=== PATIENT | female | born 1990 | race Caucasian/White ===

== ENCOUNTER 2024-12-22 03:34 | Day surgery (SDC) | payer OTHER, SELFPAY ==
[2024-12-21 20:22] VITALS: BP 97/70
[2024-12-21 20:46] LABS: % Basophils 0.1 % (0-2); % Eosinophils 0.1 % (0-6); % Immature Granulocytes 0.1 % (0-0.5); % Lymphocytes 15.3 % (20.5-51.1); % Monocytes 5.2 % (1.7-9.3); % Neutrophils 79.2 % (42.2-75.2); Absolute Lymphocytes 1.2 10^3/uL (1.2-3.4); Absolute Monocytes 0.4 10^3/uL (0.1-0.6); Hematocrit 34.9 % (37.0-47.0); Hemoglobin 11.8 g/dL (12.0-16.0); Mean Corp Hgb Conc. 33.8 g/dL (33.0-37.0); Mean Corpuscular Hgb 25.4 pg (27.0-31.0); Mean Corpuscular Volume 75.2 fL (81.0-99.0); Mean Platelet Volume 9.6 fL (7.4-10.4); Nucleated Red Blood Cells % 0 %; Platelet Count 116 10^3/uL (130-400); Red Blood Cell Count 4.64 10^6/uL (4.20-5.40); Red Cell Dist. Width 13.3 % (11.5-14.5); White Blood Cell Count 7.6 10^3/uL (4.8-10.8)
[2024-12-21 21:02] LABS: ALT (SGPT) 14 U/L (0-35); AST (SGOT) 23 U/L (14-36); Albumin 4.2 g/dl (3.5-5.0); Alkaline Phosphatase 45 U/L (38-126); Blood Urea Nitrogen 11 mg/dl (7-17); Calcium 9.5 mg/dl (8.4-10.2); Carbon Dioxide 26 mmol/L (22-30); Chloride 102 mmol/L (98-107); Glucose 92 mg/dl (70-99); Lipase 66 U/L (23-300); Potassium 3.5 mmol/L (3.5-5.1); Sodium 136 mmol/L (135-145); Total Bilirubin 0.7 mg/dl (0.2-1.3); eGFR > 60.00
[2024-12-21 22:33] LABS: HCG, Serum Qualitative Screen Negative
--- NOTE | 2024-12-21 23:22 | ED.GENMED ---
History of Present Illness
General
Chief Complaint: Abdominal Symptoms
Source: patient and spouse ( at bedside, interpreting for the patient)
Exam Limitations: none and other (Patient speaks Pashto, is interpreting)
Time Seen by Provider: 12/21/24 23:09
Nursing documentation reviewed up to this point in time: agreed with
History of Present Illness
History of Present Illness:
This is a 34-year-old woman with no significant past medical history who presents with her with complaints of generalized lower abdominal pain that began mildly around 5 AM, worsened at 9 AM accompanied with nausea and 3 episodes of
vomiting. Last episode of vomiting was 1 PM. Lower abdominal pain comes and goes throughout the day, temporized with ibuprofen as well as temporized with topical hot water bottle. Her last dose of ibuprofen was 1:30 PM.
She does admit to mild dysuria and perhaps mild mucus in her urine but has not noticed hematuria, no vaginal discharge, she has had some flank pain, intermittent more so on the right than the left throughout the day today. She denies fever nor
chills. No coughing or shortness of breath, no chest pain, no diarrhea.
She believes she had 1 similar episode when she was 15 years old. Unsure as to cause of those symptoms. She has no known prior history of ovarian cysts. No prior history of kidney stones nor UTI/pyelonephritis. No previous abdominal surgeries.
Last menstrual period December 08, normal and on time. Menses are generally monthly, regular.
She takes no medicines on a daily basis.
Patient does not speak Slovenian. Her is interpreting for her.
Past History
Past History
ED Past Medical History: None
ED Past Surgical History: Gynecological (Benign breast biopsy)
Social History
Tobacco: Non-smoker
Alcohol: None
Drug: None
Personal:
Living: with family
Family History
Family History: Other (Noncontributory)
Phy Exam
Physical Exam
Physical Exam:
GENERAL: 34-year-old woman appears her stated age, small frame/thin build, bright and alert, pleasant, quiet demeanor, appears in no acute distress. is accompanying and is interpreting for her.
EYE: anicteric
NECK: Supple, nontender, no meningismus, no significant adenopathy.
ENT: oral mucosa is moist. No rhinorrhea.
CARDIAC: Regular rate and rhythm. no murmur.
LUNGS: Clear breath sounds bilaterally, no acute respiratory distress, no wheezes/rales/rhonchi
ABDOMEN: Soft, nondistended, moderate generalized tenderness lower abdomen, more so on the right than left, with minimal tenderness right upper lateral quadrant, mild right CVA tenderness with percussion. No r/g, normoactive BS.
NEUROLOGICAL: Alert and oriented x3, no focal neuro deficits. Gait is stewart and steady.
SKIN: Warm and dry, normal color, skin intact. No rash.
MUSCULOSKELETAL: No C/C/E. peripheral pulses are full and equal b/l. No palpable tenderness.
PSYCH: Normal and appropriate interaction.
Course
Orders/Labs/Results
Orders:
Orders
12/21/24 20:27
Test Result ONCE
12/21/24 20:39
Complete Blood Count/With Diff Urgent
Comprehensive Metabolic Panel Urgent
HCG, Serum Qualitative Screen Urgent
Lipase Urgent
12/21/24 23:22
Urinalysis Reflex To Culture Urgent
Date Specimen was Collected: 12/22/24
Time Specimen was Collected: 00:13
12/22/24 00:00
CT Abd/pel Without Iv Or Oral Urgent
Reason For Exam: acute lower abd pain, R flank pain, N/V
Abnormal Lab Results
12/21/24
20:39
Hgb 11.8 L g/dL
(12.0-16.0)
Hct 34.9 L %
(37.0-47.0)
MCV 75.2 L fL
(81.0-99.0)
MCH 25.4 L pg
(27.0-31.0)
Plt Count 116 L 10^3/uL
(130-400)
Neutrophils % 79.2 H %
(42.2-75.2)
Lymphocytes % 15.3 L %
(20.5-51.1)
12/21/24 20:39
12/21/24 20:39
Vital Signs
Initial and Last Documented VS:
Initial Vital Signs
Temp Pulse Resp BP Pulse Ox
98.5 F 77 18 97/70 100
12/21/24 20:22 12/21/24 20:22 12/21/24 20:22 12/21/24 20:22 12/21/24 20:22
Last Documented Vital Signs
Temp Pulse Resp BP Pulse Ox
98.5 F 77 18 97/70 100
12/21/24 20:22 12/21/24 20:22 12/21/24 20:22 12/21/24 20:22 12/21/24 20:22
MDM/Problems Addressed
Differential Diagnosis Includes:
Concern for UTI, pyelonephritis, ureteric stone, ovarian cyst, appendicitis, gastroenteritis.
Thus far labs are reassuring and within normal limits. hCG is negative.
Check urinalysis.
Will check CT abdomen pelvis. Consider pelvic ultrasound.
Patient is currently comfortable, denies nausea and has been drinking fluids throughout the afternoon and evening. Clinically appears euvolemic. No indication for IV fluids. Vital signs within normal limits.
*Radiology
Radiology exam reviewed: radiology read reviewed (CAT scan concerning for early acute appendicitis)
*Pulse Oximetry
Patient hypoxic: no
*Critical Care Note
Total Time (30-74mins, 75-104mins- exclusive of procedures): Not Applicable
Update Note
Update Note:
01:[address] concerning for early acute appendicitis. No obstructive uropathy or perinephric stranding.
Urinalysis is negative.
Case discussed with general surgery. Will admit to their service. Recommend initiation of ceftriaxone and Flagyl. NPO.
ED Attending Note
-
Portions of this chart may have been created with voice recognition software.� Occasional wrong word or��sound alike� substitutions may have occurred due to the inherent limitations of voice recognition software.
Discharge Plan
Departure
Patient Disposition: Admit
Date of Disposition: 12/22/24
Time of Disposition: 01:20
Admit to doctor: Sd
Presentation/result/management discussed w/ accepting MD/DO: gen surgery
Discharge Problem:
Acute appendicitis
Referrals:
Bakari Ferrara MD [Family Provider] -
Interventions
Interventions:
MO-Zbkkyu-Ygfrdhkndl Assessment Last Done: 12/22/24 00:12
Discharge Date and Time
Print Language: SRI LANKAN
[2024-12-22] VITALS (13 sets, daily range): BP systolic 97–128; BP diastolic 52–73; BMI 17.3; BMI 16.0
[2024-12-22 00:39] LABS: Urine Albumin Negative (Neg - Trace); Urine Bilirubin Negative (Negative); Urine Character Clear (Clear); Urine Color Yellow; Urine Glucose Negative (Negative); Urine Ketone Negative (Negative); Urine Leukocyte Negative (Negative); Urine Nitrite Negative (Negative); Urine Occult Blood Negative (Negative); Urine Urobilinogen Negative (Neg - 1+)
[2024-12-22] MEDS: ROCEPHIN 1000 MG IV (01:55)
[2024-12-22] MEDS: FLAGYL 500 MG 100 IV (02:07)
[2024-12-22] MEDS: FLUSH (NSS) 1 FLUSH IV (03:13)
[2024-12-22] MEDS: NSS 1000 IV ×3 (03:14→08:35)
--- NOTE | 2024-12-22 03:31 | HPS.HSE ---
Addendum entered and electronically signed by Octaviano Beaver MD 12/22/24 13:40:
34-year-old female with no PMH who presents with 1 day of worsening abdominal pain associated with nausea and vomiting; WBC 7.6, CT without contrast showing suspicion for possible early appendicitis (on personal review, appendix seems somewhat
dilated, not a significant amount of appear appendiceal stranding, but very hard to delineate without any contrast)
AFVSS, ABD soft, nondistended, minimally tender in the RLQ, mild tenderness with deep palpation, no rebound or guarding
� RLQ abdominal pain, suspicion for acute appendicitis
�Due to the lack of contrast, acute appendicitis is difficult to confirm on CT; she does have some mild tenderness in the RLQ, but less than I would expect and she has no leukocytosis; therefore, acute appendicitis is possible but uncertain; I
explained the treatment options, including repeat CT with IV and p.o. contrast, nonoperative measures with IV antibiotics (explained the risks, including but not limited to, risk of recurrence) or surgery for diagnostic laparoscopy and appendectomy;
risks with surgery include, but not limited to, removal of normal appendix and lack of improvement of symptoms; after lengthy discussion with patient and patient spouse, agreed to repeat CT scan to improve diagnostic confidence
�Continue n.p.o. with IVF
� Continue IV antibiotics with ceftriaxone and Flagyl
� Okay for DVT PPx
� Pain control with Tylenol and Dilaudid as needed
Original Note:
Family Physician
-
Family Physician: Bakari Ferrara MD
Chief Complaint
-
Abdominal pain
History of Present Illness
34 year-old female with no PMH, no previous surgeries and not receiving any prescribed meds at home. Present in ER with a complain of abdominal pain. Symptoms started yesterday around 5 am with generalized abdominal pain, get worse gradually during
morning time. Symptoms associated with nausea and vomiting x3. Pain rated 10/10 of scale pain that increases with movement. Also complained of mild dysuria, some mucus in the urine and had some intermittent flank pain RT side more than LT. Pain
decreased with hot water bottle and ibuprofen. Patient had similar episode when she was 15 years old and she was told that related to infection/ bacteria. Denies diarrhea, constipation, hematuria, chills, fever, SOB, chest pain or any other
symptoms.
LMP December 08, regular monthly.
Patient is czech speaker, does not speak Anguillan, and is helping with interpretation.
Medical History
Past Medical History
Past Medical History: Reports None
Past Surgical History: Reports None
Social History
Tobacco: Non-smoker
Alcohol: None
Drug: None
Personal:
Living: With Family
Employment: Other
Family History
Family History: Not pertinent
Allergies / Home Medications
Allergies reflects when Allergies were last updated in [facility].
Home Medications with original date entered in [facility]
Allergy/Medication List:
Patient Allergies
Allergy/AdvReac Type Severity Reaction Status Date / Time
No Known Allergies Allergy Unverified 12/21/24 20:22
Home Medications Table - record
�Medication �Instructions �Recorded �Confirmed
No Meds [No Current Medications] 12/22/24 12/22/24
Review of Systems
-
A 12 point ROS was completed and negative except as noted: Yes
Constitutional: Reports No Symptoms
EENT: Reports No Symptoms
Respiratory: Reports No Symptoms
Cardiac: Reports No Symptoms
Abdomen/GI: Reports Abdominal Pain, Nausea and Vomiting
: Reports Dysuria (mild) and Flank Pain (intermittent RT more LT)
Musculoskeletal: Reports No Symptoms
Skin: Reports No Symptoms
Psych: Reports Calm
Physical Exam
Vital Signs
Vital Signs
Temp Pulse Resp BP Pulse Ox
98.3 F 68 18 99/64 98
12/22/24 02:35 12/22/24 02:11 12/22/24 02:11 12/22/24 03:12 12/22/24 03:15
Physical Exam
General: No Apparent Distress
Respiratory: Clear
Cardiac: Regular Rhythm
GI: Soft, Non Distended, Normal Bowel Sounds and Tender (Mild RLQ/ RUQ + McBurney`s point )
Musculoskeletal: No Edema
Neuro: Awake and AO x 3
Psych: Calm
Laboratory Results
-
12/21/24 20:39
12/21/24 20:39
Laboratory Results
Total Bilirubin 0.7 mg/dl (0.2-1.3) 12/21/24 20:39
AST 23 U/L (14-36) 12/21/24 20:39
ALT 14 U/L (0-35) 12/21/24 20:39
Alkaline Phosphatase 45 U/L (38-126) 12/21/24 20:39
Lipase 66 U/L (23-300) 12/21/24 20:39
Data Reviewed
-
CT Scan: Discussed with Patient
Impression/Plan
-
-Neg urinalysis
-Normal leukocyte count
-CT abdomen and PLVs shows
Thickened right lower quadrant Appendix measuring up to 9mm, with faint periappendiceal fat stranding. Associated wall thickening of the cecum at the base of the appendix. Findings concerning for early acute appendicitis. No abscess or free air.
Trace free fluids in the pelvis. Mild stool - filed colon.
No obstructive uropathy or perinephric stranding. No renal or ureteral stones. Decompressed bladder.
Mildly enlarged liver. Prominent spleen measuring 12.6 cm craniocaudal.
IMPRESSION:
Acute appendicitis
PLAN:
Admit /observation/ med-surg (Dr. Beaver/ general surgery)
-NPO
-IVF
-Received ceftriaxone and Flagyl in ER
-antiemetics as needed
-analgesics as needed.
DVT prophylaxis Lovenox
Code status Full code
--- NOTE | 2024-12-22 04:30 | PTCARENOTE ---
Patient arrived to [address] [place] [address] via stretcher, walked into room on her own. AAOx[employer], primary Portuguese speaking, and osteopathic medicine teacher phone for communication with patient. IVF infusing per order, all questions answered at this time. Assessment on going.
--- NOTE | 2024-12-22 10:21 | CM ---
Reviewed the chart notes and spoke with the patient's spouse as rollout manager at the bedside. The patient resides with her spouse in a two story home with two steps to enter. The patient reports no DME/VN/SNF. The patient confirmed her pharmacy of
choice is the [facility]. CM continues to be available to patient/family and is monitoring medical plan for needs at discharge.
Plan: Discharge to home when medically stable. No needs anticipated. Patient's spouse will provide transportation.
[2024-12-22] MEDS: OMNIPAQUE 50 ML PO (11:31)
--- NOTE | 2024-12-22 17:23 | W.IMMPOSTOP ---
Addendum entered and electronically signed by Octaviano Beaver MD 12/22/24 17:40:
updated via phone
Original Note:
Surgical Immed Post Op Note
-
Primary Surgeon: Octaviano Beaver MD
Assisting Surgeon: Roxy Whelan NP, TERRITORY SALES MANAGER-S
Pre-op Diagnosis: acute appendicitis
Post-op Diagnosis: acute appendicitis
Procedure Performed: lap appy
Anesthesia Type: general
Specimen / Cultures: appendix
Estimated Blood Loss: 15mL
Complications: none
Operative Findings: inflamed and injected appendix, not perforated
--- NOTE | 2024-12-22 17:24 | OR.RPT ---
Operative Report
Operative Report
DATE OF OPERATION: 12/22/2024
SURGEON: Octaviano Beaver MD
PREOPERATIVE DIAGNOSIS: Acute appendicitis
POSTOPERATIVE DIAGNOSIS: Acute non-perforated appendicitis
OPERATION: Laparoscopic appendectomy
ASSISTANTS:
1. Roxy Whelan NP, ROOFER METAL�S
ANESTHESIA: General
ESTIMATED BLOOD LOSS: 15 mL
FINDINGS:
1. Appendix appeared injected and inflamed without evidence of perforation
SPECIMENS:
1. Appendix
DRAINS: None
COMPLICATIONS: No immediate complications.
INDICATIONS: The patient is a 34-year-old female who presented with 1 day of worsening abdominal pain. WBC was normal and CT without contrast was done showing concern for early appendicitis, but difficult to be certain without contrast. On exam,
she was only mildly tender. I offered repeat imaging with contrast versus diagnostic laparoscopy versus antibiotic treatment alone. After a repeat CT scan with contrast showed acute appendicitis, I recommended appendectomy. The operation was
discussed with the patient in detail, including the risks, benefits and alternatives. Risks described included, but not limited to, bleeding, infection, damage to nearby structures (i.e., bowel, bladder, epigastric vessels), need for further
resection than anticipated, conversion to open, and anesthetic risks. The patient understood and agreed to proceed. The consent was signed and placed in the chart.
PROCEDURE IN DETAIL: The patient was taken to the operating room and placed on the operating table in supine position. Sequential compression devices were placed bilaterally. General anesthesia was then induced and the patient was intubated without
complication. The patient was secured to the bed with one seatbelt, the right arm secured to the armboard and the left arm was tucked. Mccarthy catheter was placed with sterile technique. Ancef and Flagyl were given preincision. The abdomen was then
prepped and draped in the usual sterile fashion. A time-out was performed verifying the correct patient, procedure, operative site, positioning, and special equipment.
A 15 blade scalpel was used to make a curvilinear infraumbilical incision about 1.5 cm in length. This was taken down to the level of the fascia using Bovie electrocautery and blunt dissection. The fascia was grasped with Yasmin clamps and
elevated. A 15 blade was used to incise the fascia. A Sarah clamp was introduced and used to spread the fascia. Abdominal entry was confirmed visually and a finger was used to ensure no nearby adhesions. The 12 mm balloon-tipped Pushpa port was
then inserted and the balloon insufflated with 20 mL of air. The abdomen was insufflated to a pressure of 15 mmHg. The patient tolerated insufflation well. A 10-30 laparoscope was inserted and the abdomen inspected. No injury was noted from
initial abdominal entry. The appendix was covered with small bowel but the cecum was easily identifiable. Two more 5 mm ports were placed under direct visualization in the left lower quadrant and the suprapubic region, taking care to avoid any
injury to the epigastric vessels and the bladder respectively. The patient was placed in Trendelenburg position with the right side up.
Two atraumatic graspers were used to sweep the small bowel to the left upper quadrant and identify the cecum, terminal ileum and appendix. The appendix was inflamed and dilated but only loosely adherent to the right sidewall of the pelvic inlet.
The appendix was easily freed with blunt dissection and some sharp dissection with the laparoscopic LigaSure. There was no evidence of perforation. The appendix was grasped and elevated to expose the mesoappendix, which was serially ligated to the
base of the appendix with the LigaSure. With the appendix freely mobile, I switched to the 5-30 laparoscope and divided the appendix using the 45 mm laparoscopic linear cutting stapler with a purple load. The appendix was placed in an Endocatch bag
and placed to the side.
The right lower quadrant was suctioned. Hemostasis at the staple line and mesoappendix was confirmed. Attention was turned to the pelvis and this was also suctioned of clear serous fluid. Next, the suprapubic port and LLQ port were removed under
direct visualization, no bleeding was noted. The balloon port of the Hough trocar was deflated, the trocar removed and the appendix extracted without difficulty. The appendix was passed off as specimen. The abdomen was allowed to collapse. The
fascia at the infraumbilical port site was closed with one 0-Vicryl stitch in a [id number] fashion. The skin of the ports were closed with 4-0 Monocryl in subcuticular fashion. The incisions were injected with a total of 20 mL of 0.25%
Marcaine with epinephrine and 0.2 mg of dexamethasone. Dermabond was used for dressing.
At this point, the procedure was complete. The patient was awoken and extubated without complication. The mccarthy was removed. All needle, sponge and instrument counts were reported as correct. The patient tolerated the procedure well and was
transferred to the recovery room in stable condition.
DICTATED BY: Octaviano Beaver MD
== END 2024-12-22 21:00 | disposition home or self-care (01) ==
LOC: SDS 03:34
PROVIDERS: Emergency Medicine; ATTENDING PHYSICIAN Surgery; EMERGENCY PHYSICIAN Emergency Medicine; FAMILY PHYSICIAN Urology
DX: K35.80 Unspecified acute appendicitis (principal)
CPT/HCPCS: 44970; 88304; 74176; 74177; 80053; 81003; 83690; 84703; 85025; 96361; 96365; 96375; 99285; C1776; G0378; Q9967